=== PATIENT | female | born 1945 | race Caucasian/White ===

== ENCOUNTER 2019-07-11 08:30 | Inpatient (IN) | payer MEDICARE, OTHER ==
[~2019-07-11 08:30] MED LIST: Dexamethasone 4 MG/ML SDV ONE; Glycopyrrolate 0.2 MG/ML 5 ML MDV ONE; Ketamine 50 MG in Sodium Chloride 0.9% 49.5 ML IV SCH; Ketamine 500 MG/5 ML MDV IV SCH; Lidocaine 2% 100 MG/5 ML Syringe IVPUSH SCH; Neostigmine Methylsulfate 1 MG/ML 5 ML Syringe ONE; Ondansetron 4 MG/2 ML SDV ONE; Propofol 200 MG/20 ML SDV ONE; Rocuronium 50 MG/5 ML Vial ONE; Ropivacaine 34 ML, dexAMETHasone 8 MG, EPINEPHrine 0.4 MG, Sodium Chloride 0.9% 43.6 ML NERVRT SCH; Succinylcholine 200 MG/10 ML MDV ONE; fentaNYL 250 MCG/5 ML SDV ONE
[2019-07-11] MEDS ORDERED: Gabapentin 400 MG Cap PO ONE (09:15)
[2019-07-11] MEDS ORDERED: Acetaminophen 500 MG Tab PO ONE (09:15)
[2019-07-11] MEDS ORDERED: Dextrose 5%-Lactated Ringers 1,000 ML IV SCH (09:30)
[2019-07-11] MEDS ORDERED: Meropenem 500 MG SDV ONE (10:06)
[2019-07-11] MEDS ORDERED: cefOXitin 2 GM in Sodium Chloride 0.9% 50 ML IV ONE (10:45)
[2019-07-11] MEDS ORDERED: Bupivacaine 0.5% 50 ML MDV ONE (11:14)
[2019-07-11] MEDS ORDERED: Lidocaine 1% with EPINEPHrine 1:100,000 50 ML MDV ONE (11:14)
[2019-07-11] MEDS ORDERED: Metoclopramide 10 MG/2 ML SDV IVPUSH PRN (14:35)
[2019-07-11] MEDS ORDERED: diphenhydrAMINE 50 MG/ML SDV IVPUSH PRN (14:35)
[2019-07-11] MEDS ORDERED: HYDROmorphone 1 MG/ML Syringe IV PRN (14:35)
[2019-07-11] MEDS ORDERED: hydrOXYzine HCl 100 MG/2 ML SDV IM PRN (14:35)
[2019-07-11] MEDS ORDERED: Labetalol 20 MG/4 ML Syringe IVPUSH PRN (14:35)
[2019-07-11] MEDS ORDERED: Ondansetron 4 MG/2 ML SDV IVPUSH PRN (14:35)
[2019-07-11] MEDS ORDERED: HYDROmorphone 0.5 MG/0.5 ML Syringe ONE (14:39)
[2019-07-11] MEDS: Lidocaine 0.4%/D5W 2 GM/500 ML BAG IV SCH (14:51)
[2019-07-11] MEDS: Gabapentin 400 MG Cap PO SCH ×2 (15:48→20:21)
[2019-07-11] MEDS: Magnesium Sulfate/Water 2 GM in Premix Bag 1 BAG IV SCH ×2 (15:49→21:06)
[2019-07-11] MEDS: MVI, Adult with Vitamin K 10 ML, Thiamine 200 MG, Chromium/Copper/Mang/Selen/Zn 1 ML in... IV SCH ×4 (16:00)
[2019-07-11] MEDS: cefOXitin 2 GM in Sodium Chloride 0.9% 50 ML IV SCH ×2 (16:06→21:07)
[2019-07-11] MEDS: Pantoprazole 40 MG Vial IVPUSH SCH (16:17)
[2019-07-11] MEDS: Acetaminophen 325 MG Tab PO SCH ×2 (16:18→21:10)
[2019-07-11] MEDS: HYDROmorphone 0.5 MG/0.5 ML Syringe IVPUSH PRN (17:34)
[2019-07-11] MEDS: Heparin Sodium 5,000 Units/ML Vial SUBCUT SCH (20:07)
[2019-07-11] MEDS: Dextrose 5%-Lactated Ringers 1,000 ML IV SCH (21:49)
[2019-07-12] MEDS: cefOXitin 2 GM in Sodium Chloride 0.9% 50 ML IV SCH (03:08)
[2019-07-12] MEDS: Dextrose 5%-Lactated Ringers 1,000 ML IV SCH ×2 (03:10→21:45)
[2019-07-12] MEDS: Magnesium Sulfate/Water 2 GM in Premix Bag 1 BAG IV SCH ×4 (03:13→21:45)
[2019-07-12] MEDS: Acetaminophen 325 MG Tab PO SCH ×5 (03:17→21:06)
[2019-07-12] MEDS ORDERED: Iopamidol 612 MG/ML 50 ML SDV PO STA (03:55)
--- NOTE | 2019-07-12 05:13 | CRLCR ---
INDICATION: S/P RNY REVISION LEAK CHECK PRELIMINARY IMPRESSIONS: 1. No evidence of contrast extravasation is noted on 2 static submitted images. 2. The proximal jejunum is dilated at 4.3 cm and may be due to ileus. 3. Pneumoperitoneum present, likely from recent surgery. Prelim Report By Dr. Roni Warren @ 07/12/2019 5:10:54 AM ADDENDUM Agree with preliminary report. No additional findings. Dictated by: Micky Mcwilliams MD @ 07/13/2019 20:52:36 (Electronically Signed)
[2019-07-12] MEDS: Lidocaine 0.4%/D5W 2 GM/500 ML BAG IV SCH (08:55)
[2019-07-12] MEDS: Heparin Sodium 5,000 Units/ML Vial SUBCUT SCH ×2 (08:55→20:45)
[2019-07-12] MEDS: NIFEdipine 30 MG Tab.ER PO SCH (08:58)
[2019-07-12] MEDS: Gabapentin 400 MG Cap PO SCH ×3 (09:00→20:46)
[2019-07-12] MEDS: Furosemide 20 MG Tab PO SCH (09:01)
[2019-07-12] MEDS: Zinc (Zinc Gluconate) 50 MG Tab PO SCH (09:05)
[2019-07-12] MEDS: SCOPOLAMINE PATCH CHECK TOP SCH (09:20)
--- NOTE | 2019-07-12 09:23 | PN ---
DATE OF SERVICE: 07/12/2019 HISTORY OF PRESENT ILLNESS: Maeve is postop day #1. Lidocaine was discontinued due to weakness. Waters catheter has been removed. Upper GI was normal. Vital signs have been stable. She has been very sleepy, but arouses with stimulation. REVIEW OF SYSTEMS: Remainder of review of systems negative for any pertinent positives and negatives. OBJECTIVE: GENERAL: Maeve Ayala is a 73-year-old female who, as stated, is very sleepy, resting comfortably in bed. VITAL SIGNS: TPR; last temperature was 07/11/2019. Vitals recorded at 0600 on 07/12/2019 and pulse 84, respirations 20. Blood pressure 126/87, O2 is 95%. HEENT: Negative. NECK: Supple heart regular rate and rhythm. LUNGS: Clear, but unable to take a real deep breath. ABDOMEN: Dressing dry and intact. Abdominal binder is on. EXTREMITIES: Without peripheral edema. ASSESSMENT: Exploratory laparotomy with: 1. Reduction of small bowel volvulus and closure of internal hernia. 2. Revision of the jejunojejunostomy component of the Dwight-en-Y gastric bypass. 3. Placement of Interceed mesh for partial small bowel obstruction secondary to small bowel volvulus and edematous dilated jejunojejunostomy. Date of surgery 07/11/2019. Surgeon, Gregory To MD. PLAN: 1. Step 2 gastric bypass diet without cereal. 2. Decrease IV to 80 mL/hour. 3. Protein supplements q.i.d. 4. Discharge planning to assess home health care needs. 5. Good pulmonary toilet. 6. Ambulate at least 6 times daily. 7. We will evaluate p.r.n. or in a.m. Brii Joseph PA-C /[id number]
[2019-07-12] MEDS: HYDROmorphone 0.5 MG/0.5 ML Syringe IVPUSH PRN ×2 (09:36→19:09)
--- NOTE | 2019-07-12 13:53 | OR ---
DATE OF PROCEDURE: 07/11/2019 SURGEON: Gregory To MD PREOPERATIVE DIAGNOSIS: Partial small bowel obstruction. POSTOPERATIVE DIAGNOSES: 1. Partial small bowel obstruction secondary to small bowel volvulus. 2. Edematous dilated jejunojejunostomy. OPERATIVE PROCEDURES: Exploratory laparotomy with, 1. Reduction of small bowel volvulus and closure of internal hernia (50779). 2. Revision of jejunojejunostomy component of Dwight-en-Y gastric bypass (64832). 3. Placement of Interceed mesh against pelvic and abdominal montalvo to limit adhesion formation between pelvic and abdominal montalvo and underlying viscera (10767). ANESTHESIA: General. INDICATION FOR PROCEDURE: This is a 73-year-old female presenting with some ongoing problems with postprandial abdominal pain and cramping, consistent with partial small bowel obstruction. The CT scan did show some dilated loops of small bowel with an obvious transition point. A typical pattern one would see in this clinical setting. The plan is to proceed with a limited laparotomy and lysis of adhesions, reduction of any volvulus, and closure of internal hernias identified, and possible bowel resection as indicated. Potential risks including bleeding, infection, injury to underlying viscera, problems with recurrence or persistent of problem over time were all discussed, along with the remote possibility of cardiopulmonary, septic, or hemorrhagic complications leading to were gone over, and the patient wishes to proceed. DETAILS OF PROCEDURE: The patient was taken to the operating room and placed in a supine position. After general endotracheal anesthesia was induced, the abdomen was prepped and draped, and a Waters catheter inserted. A midline incision from the umbilicus, roughly a handsbreadth, toward the xiphoid was then made and carried down through the skin and subcutaneous tissue and peritoneum. Upon entering the peritoneal cavity, the patient was noted to have a segment of small bowel, which was slightly tavares in appearance and consistent with some venous hypertension. This was found to be the Dwight limb as it had prolapsed through a mesenteric defect at the site of a previous small bowel anastomosis. This was reduced. The bowel had pinked up quite nicely. There was quite a bit of edema and dysfunctional appearance of the jejunojejunostomy at this point, likely related to its chronically being partially obstructed in the area of the volvulus, which was involved. Given this, we elected to revise that anastomosis. The Dwight limb was then divided flush with the jejunojejunostomy and roughly 5 cm segment of that then excised as well with SUJIT staplers. The underlying mesentery was also divided with SUJIT dwight, and the small bowel specimen delivered from the field. The Dwight limb at this point was measured to be 80 cm, and the patient had a fairly short biliopancreatic limb. At this point, we elected then to revise the jejunojejunostomy with the Dwight limb now being anastomosed to the small bowel roughly 20 cm distal to the original jejunojejunostomy with only bile and pancreatic fluids passing through the previous anastomosis, that should be satisfactory in terms of its functional motility. The new jejunojejunostomy was then completed with an internal firing of the Endo-SUJIT 60 mm stapler, followed by 30 mm stapler. Common opening was then closed transversely with the same stapler. The angles of anastomosis reinforced with some 3-0 Vicryl stitch. The mesenteric defect at this site as well as the site previously were both then closed with a 2-0 silk stitch. A permanent stitch being used to provide a more long-lasting closure. At that point, the abdomen was irrigated with meropenem-containing saline solution. General exploration of the area had been completed as well. The patient was noted to have good arterial pulsations throughout the mesentery, i.e., there was no sign of any mesenteric ischemia per se and, otherwise, the liver appeared to be normal and no additional specific abnormalities were noted, apart from some scattered adhesions which would not, at this point, be problematic. The omentum was not mobilizable underneath the incision or within the pelvis. Given this, Interceed mesh was placed underneath the pelvic wall and up against the abdominal wall to displace the viscera from those sites and limit recurrent adhesion formation. Bilateral transversus abdominis plane blocks were then placed at this point and the midline fascia was then approximated with #2 Vicryl stitch. The fascia was then anesthetized with some 0.5% Marcaine with lidocaine as well, and the subcutaneous tissue approximated with 3 and 4-0 Vicryl stitch deep and dwight for the skin. Dressing was applied. The patient was taken to the recovery room in satisfactory condition. There were no evident complications. Gregory To MD /[id number]
[2019-07-12] MEDS: MVI, Adult with Vitamin K 10 ML, Thiamine 200 MG, Chromium/Copper/Mang/Selen/Zn 1 ML in... IV SCH ×4 (15:39)
[2019-07-12] MEDS: Pantoprazole 40 MG Vial IVPUSH SCH (15:40)
[2019-07-13] MEDS: Magnesium Sulfate/Water 2 GM in Premix Bag 1 BAG IV SCH ×2 (03:45→09:22)
[2019-07-13] MEDS: Acetaminophen 325 MG Tab PO SCH ×4 (03:46→21:26)
[2019-07-13] MEDS: Heparin Sodium 5,000 Units/ML Vial SUBCUT SCH ×2 (07:25→20:20)
[2019-07-13] MEDS ORDERED: Cyanocobalamin (Vitamin B12) 1,000 MCG/ML SDV IM ONE (09:00)
[2019-07-13] MEDS: Furosemide 20 MG Tab PO SCH (09:20)
[2019-07-13] MEDS: Gabapentin 400 MG Cap PO SCH ×3 (09:20→20:20)
[2019-07-13] MEDS: Bisacodyl 5 MG Tab PO SCH ×2 (09:20→20:20)
[2019-07-13] MEDS: Docusate Sodium 100 MG Cap PO SCH ×2 (09:20→20:20)
[2019-07-13] MEDS: NIFEdipine 30 MG Tab.ER PO SCH (09:21)
[2019-07-13] MEDS: Zinc (Zinc Gluconate) 50 MG Tab PO SCH (09:22)
[2019-07-13] MEDS: SCOPOLAMINE PATCH CHECK TOP SCH (09:25)
[2019-07-13] MEDS: Dextrose 5%-Lactated Ringers 1,000 ML IV SCH (09:31)
--- NOTE | 2019-07-13 10:32 | PN ---
DATE OF SERVICE: 07/13/2019 SUBJECTIVE: Maeve is postoperative day 2. She states she is feeling better today. She did have physical therapy yesterday and will continue home health care and it will be set up for her. Vital signs have been stable. Pain has been managed. Oral intake recorded was 300. Urine output was . REVIEW OF SYSTEMS: Remainder of review of systems negative for any pertinent positives and negatives. OBJECTIVE: GENERAL: Maeve Ayala is a 73-year-old female. She is alert and orientated. VITAL SIGNS: TPR; 96.1, 81, 16. Blood pressure 137/54. HEENT: Negative. NECK: Supple. HEART: Regular rate and rhythm. LUNGS: Clear. ABDOMEN: Dressing is dry and intact. Abdominal binder is on. EXTREMITIES: Negative for any peripheral edema. ASSESSMENT: Exploratory laparotomy with: 1. Reduction of small bowel volvulus and closure of internal hernia. 2. Revision of the jejunojejunostomy component of the Dwight-en-Y gastric bypass. 3. Placement of Interceed mesh against pelvic and abdominal montalvo to limit adhesion formation between pelvic and abdominal montalvo and underlining viscera. POSTOPERATIVE DIAGNOSES: 1. Partial small bowel obstruction secondary to small bowel volvulus. 2. Edematous distal jejunojejunostomy. Date of surgery, 07/11/2019. Surgeon, Gregory To MD. PLAN: 1. Soft solid diet. No bread, pasta, or rice, but may have crackers. 2. Dulcolax 10 mg tabs b.i.d. scheduled. Discontinue when having BMs. 3. Colace 100 mg b.i.d. orally. 4. Good pulmonary toilet. 5. We will evaluate p.r.n. or in a.m. Brii Joseph PA-C /[id number]
[2019-07-13] MEDS: Pantoprazole 40 MG Tab.CR PO SCH (11:26)
[2019-07-13] MEDS: MVI, Adult with Vitamin K 10 ML, Thiamine 200 MG, Chromium/Copper/Mang/Selen/Zn 1 ML in... IV SCH ×4 (16:09)
[2019-07-14] MEDS: Acetaminophen 325 MG Tab PO SCH ×4 (03:40→22:12)
[2019-07-14] MEDS: Dextrose 5%-Lactated Ringers 1,000 ML IV SCH (05:45)
[2019-07-14] MEDS: Heparin Sodium 5,000 Units/ML Vial SUBCUT SCH ×2 (08:03→19:26)
[2019-07-14] MEDS: Pantoprazole 40 MG Tab.CR PO SCH (08:03)
[2019-07-14] MEDS: Docusate Sodium 100 MG Cap PO SCH ×2 (09:20→20:35)
[2019-07-14] MEDS: Gabapentin 400 MG Cap PO SCH ×3 (09:21→20:35)
[2019-07-14] MEDS: Furosemide 20 MG Tab PO SCH (09:21)
[2019-07-14] MEDS: Bisacodyl 5 MG Tab PO SCH ×2 (09:21→20:35)
[2019-07-14] MEDS: NIFEdipine 30 MG Tab.ER PO SCH (09:22)
[2019-07-14] MEDS: Zinc (Zinc Gluconate) 50 MG Tab PO SCH (09:23)
[2019-07-14] MEDS: traMADol 50 MG Tab PO PRN ×2 (09:36→22:14)
[2019-07-15] MEDS: Acetaminophen 325 MG Tab PO SCH ×2 (03:26→11:33)
[2019-07-15 07:58] VITALS: PULSE 87
[2019-07-15] MEDS: Pantoprazole 40 MG Tab.CR PO SCH (08:27)
[2019-07-15] MEDS: Heparin Sodium 5,000 Units/ML Vial SUBCUT SCH (08:27)
[2019-07-15] MEDS: Bisacodyl 5 MG Tab PO SCH (08:33)
[2019-07-15] MEDS: Furosemide 20 MG Tab PO SCH (08:33)
[2019-07-15] MEDS: Docusate Sodium 100 MG Cap PO SCH (08:33)
[2019-07-15] MEDS: Gabapentin 400 MG Cap PO SCH (08:34)
[2019-07-15] MEDS: NIFEdipine 30 MG Tab.ER PO SCH (08:34)
[2019-07-15 08:35] VITALS: BP 133/70
[2019-07-15] MEDS: Zinc (Zinc Gluconate) 50 MG Tab PO SCH (08:36)
[2019-07-15] MEDS: traMADol 50 MG Tab PO PRN (08:40)
--- NOTE | 2019-07-17 07:58 | DISCH ---
FINAL DIAGNOSES: 1. Partial small bowel obstruction secondary to small bowel volvulus. 2. Edematous and dilated jejunojejunostomy. 3. History of Dwight-en-Y gastric bypass. 4. History of type 2 diabetes mellitus, in remission. 5. Myasthenia gravis. 6. Chronic kidney disease, stage 4. OPERATIVE PROCEDURES: This was done on 07/11/2019, exploratory laparotomy with; 1. Reduction of small bowel volvulus, closure of internal hernia. 2. Revision of jejunojejunostomy component of Dwight-en-Y gastric bypass. 3. Placement of Interceed mesh to limit recurrent adhesion formation. HOSPITAL COURSE: A 73-year-old female presenting with a picture of partial small bowel obstruction. On the date of admission, the patient underwent exploratory laparotomy. She was noted to have an area of focal volvulus along with markedly edematous jejunojejunostomy. This was closed after reduction and the jejunojejunostomy revised. She is tolerating a soft solid diet at this point without further problems, and she will be discharged home today with Tylenol 650 p.o. q.4 hours p.r.n. pain along with her usual tramadol. Her zinc levels were noted recently to be low, so we sent home with a 60-day supply of zinc gluconate 50 mg daily. Otherwise, follow up with Brii Joseph at [facility] in [place] on 07/25/2019.
--- NOTE | 2019-07-19 08:45 | PN ---
DATE OF SERVICE: 07/14/2019 SUBJECTIVE: Maeve is postop day #3. Her pain has been controlled. She remains to be quite weak. Vital signs have been stable. Oral intake was good at 2059. Urine output was 1875. She had not had a bowel movement. REVIEW OF SYSTEMS: Remainder of review of systems negative for any pertinent positives and negatives. OBJECTIVE: GENERAL: Maeve Ayala is a 73-year-old female. She is alert and orientated. VITAL SIGNS: TPR; 98.4, 88, 16. Blood pressure 135/53. HEENT: Negative. NECK: Supple. HEART: Regular rate and rhythm. LUNGS: Clear. ABDOMEN: Dressings dry and intact. Abdominal binder is on. EXTREMITIES: Without peripheral edema. ASSESSMENT: Exploratory laparotomy with: 1. Reduction of small bowel volvulus and closure of internal hernia. 2. Revision of the jejunojejunostomy component of the Dwight-en-Y gastric bypass. 3. Placement of Interceed mesh against pelvic and abdominal montalvo to limit adhesion formation between pelvic and abdominal montalvo and underlining viscera. PLAN: 1. Aquacel dressing can be removed. 2. IV saline lock. 3. May shower. 4. Good pulmonary toilet. 5. Continue bowel stimulation. 6. We will evaluate p.r.n. or in a.m. 7. Plan discharge in a.m. Brii Joseph PA-C /[id number]
== END 2019-07-15 12:45 | disposition home or self-care (01) | DRG 330 ==
LOC: EDSTATUS 08:30 → JP.SDSSCHI 08:57 → JP.SDS 08:57 → JP.ICU 12:15 → JP.2SS 07-12 11:21
PROVIDERS: ADMIT Surgery; ATTEND Surgery
PROC: 0DS80ZZ Reposition Small Intestine, Open Approach (ICD-10-PCS; principal; 2019-07-11)
PROC: 0DBA0ZZ Excision of Jejunum, Open Approach (ICD-10-PCS; 2019-07-11)
PROC: 0DQV0ZZ Repair Mesentery, Open Approach (ICD-10-PCS; 2019-07-11)
PROC: 3E0M05Z Introduction of Adhesion Barrier into Peritoneal Cavity, Open Approach (ICD-10-PCS; 2019-07-11)
DX: K56.600 Partial intestinal obstruction, unspecified as to cause (principal); N18.4 Chronic kidney disease, stage 4 (severe); N25.81 Secondary hyperparathyroidism of renal origin; K56.2 Volvulus; K59.8 Other specified functional intestinal disorders; G70.00 Myasthenia gravis without (acute) exacerbation; E11.22 Type 2 diabetes mellitus with diabetic chronic kidney disease; K46.9 Unspecified abdominal hernia without obstruction or gangrene; I12.9 Hypertensive chronic kidney disease with stage 1 through stage 4 chronic kidney disease, or unspecified chronic kidney disease; I73.00 Raynaud's syndrome without gangrene; E11.43 Type 2 diabetes mellitus with diabetic autonomic (poly)neuropathy; E66.9 Obesity, unspecified; E78.5 Hyperlipidemia, unspecified; M19.91 Primary osteoarthritis, unspecified site; K21.9 Gastro-esophageal reflux disease without esophagitis; Z96.1 Presence of intraocular lens; Z98.51 Tubal ligation status; Z68.25 Body mass index [BMI] 25.0-25.9, adult; Z98.42 Cataract extraction status, left eye; Z98.84 Bariatric surgery status
CPT/HCPCS: 74240; 88307; 97110-GP; 97116-GP; 97140-GP; 97161-GP; 97530-GP; 97535-GP; A9270-GY; C9113; J0171; J0330; J0694; J1100; J1170; J1644; J2001; J2185; J2405; J2704; J2710; J2795; J3010; J3411; J3420; J3475; J3490; J7042; J7050; Q9967